=== PATIENT | male | born 1975 | race African-American/Black ===

== ENCOUNTER 2021-04-21 18:18 | Emergency (ER) | payer OTHER ==
[~2021-04-21] VITALS: Ht 180.3 cm; Wt 92.0 kg
[2021-04-21] MEDS ORDERED: SODIUM CHLORIDE 0.9% 1,000 ML IV ONE ×2 (21:00→22:45)
[2021-04-21] MEDS ORDERED: KETOROLAC 30MG/ML VIAL IV ONE (21:00)
[2021-04-21] MEDS ORDERED: MORPHINE SULFATE 10 MG/ML CPJ IV ONE (21:00)
[2021-04-21 21:28] LABS: HEMATOCRIT. 45.4 % (42.0-52.0); HEMOGLOBIN. 14.8 g/dL (14.0-18.0); MEAN CORPUSCULAR VOLUME 82.6 fL (80.0-94.0); MEAN PLATELET VOLUME 11.2 fl (7.4-10.4); PLATELET 107 x1000/uL (130-400); RED CELL DISTRIBUTION WIDTH 15.1 % (11.6-14.6)
[2021-04-21 21:29] LABS: CHLORIDE 107 mEq/L (98-107)
[2021-04-21 21:42] LABS: PLATELET ESTIMATE DECREASED
[2021-04-21] MEDS ORDERED: FENTANYL CITRATE/PF 50MCG/ML 2ML VIAL IV ONE (22:30)
[2021-04-21] MEDS ORDERED: MIDAZOLAM HCL 2 MG/2 ML VIAL IV NR (22:45)
[2021-04-21] MEDS ORDERED: MIDAZOLAM HCL 2 MG/2 ML VIAL IV ONE (22:45)
[2021-04-22] MEDS ORDERED: FLUMAZENIL 0.1 MG/ML 5ML VIAL IV ONE
[2021-04-22] MEDS ORDERED: FENTANYL CITRATE/PF 50MCG/ML 2ML VIAL IV ONE
[2021-04-22 01:07] VITALS: BP 160/85
== END 2021-04-22 02:00 | disposition short-term general hospital (02) ==
LOC: ER 18:18
DX: S32.462A Displaced associated transverse-posterior fracture of left acetabulum, initial encounter for closed fracture (principal); S73.015A Posterior dislocation of left hip, initial encounter; V49.88XA Car occupant (driver) (passenger) injured in other specified transport accidents, initial encounter; Y93.89 Activity, other specified; Y92.89 Other specified places as the place of occurrence of the external cause; Y99.8 Other external cause status
CPT/HCPCS: 27250; 36415; 71045; 72040; 72170; 74176; 80048; 85025; 96361; 96374; 96375; 99152; 99285; J1885; J2250; J2270; J3010; J7030; Z7610; 96376; J3490